=== PATIENT | female | born 1975 | race Caucasian/White ===

== ENCOUNTER → 2019-03-10 | Outpatient (CLI) | payer BC ==
--- NOTE | 2019-03-12 10:13 | MM ---
Reason for exam: screening (asymptomatic). Last mammogram was performed 5 years and 8 months ago. History: Patient is nulliparous. Family history of breast cancer in maternal grandmother. Physical Findings: A clinical breast exam by your physician is recommended on an annual basis and results should be correlated with mammographic findings. MG 3D Screening Mammo W/Cad Bilateral CC and MLO view(s) were taken. Prior study comparison: July 25, 2013, bilateral digital screening mammo w/CAD. The breast tissue is heterogeneously dense. This may lower the sensitivity of mammography. Finding: There are calcifications in the upper outer quadrant of the right breast. New finding since July 25, 2013. ASSESSMENT: Incomplete: need additional imaging evaluation, BI-RAD 0 RECOMMENDATION: Special view mammogram of the right breast. [facility] will attempt to contact patient to return for supplemental views.
== END ==
LOC: RADMAMWWP 15:41
PROVIDERS: ATTEND Obstetrics & Gynecology Obstetrics
DX: Z80.3 Family history of malignant neoplasm of breast (principal)
CPT/HCPCS: 77063; 77067

== ENCOUNTER → 2019-03-18 | Outpatient (CLI) | payer BC ==
--- NOTE | 2019-03-19 08:25 | MM ---
Reason for exam: additional evaluation requested from abnormal screening. Last mammogram was performed less than 1 month ago. History: Patient is nulliparous. Family history of breast cancer in maternal grandmother. Physical Findings: Nurse did not find any significant physical abnormalities on exam. MG 3D Work Up W/Cad RT CC with magnification, ML with magnification, and ML view(s) were taken of the right breast. Prior study comparison: March 10, 2019, bilateral MG 3d screening mammo w/cad. July 25, 2013, bilateral digital screening mammo w/CAD. The breast tissue is heterogeneously dense. This may lower the sensitivity of mammography. There are four groups of right upper outer quadrant calcifications at middle and posterior depth. Biopsy is recommended for the mass anteriorly and most posterior sites (arrow on imgages) magnification ML view. These results were verbally communicated with the patient and result sheet given to the patient on 03/18/19. ASSESSMENT: Suspicious, BI-RAD 4 RECOMMENDATION: Stereotactic core biopsy of the right breast. (2 sites) Called Dr. Yang with mammographic findings and has scheduled an appointment for the patient for 03/26/19 at 2:[address] Eagle. PRELIMINARY REPORT CALLED AND FAXED TO DR. EAGLE ON 03/18/19.
== END | disposition home or self-care (01) ==
LOC: RADMAMWWP 13:42
PROVIDERS: ATTEND Obstetrics & Gynecology Obstetrics
DX: R92.8 Other abnormal and inconclusive findings on diagnostic imaging of breast (principal)
CPT/HCPCS: 77061; 77065

== ENCOUNTER → 2019-04-03 | Day surgery (SDC) | payer BC ==
[2019-04-03 10:23] VITALS: RESP 16; BMI 34.1
[2019-04-03 12:09] VITALS: BP 157/84; PULSE 72; TEMP 97.9
--- NOTE | 2019-04-03 16:58 | MM ---
EXAMINATION TYPE: MG stereo VAD BX RT DATE OF EXAM: 04/03/2019 COMPARISON: NONE CLINICAL HISTORY: Multiple abnormal groups of calcifications TECHNIQUE: Stereotactic guided core biopsy of right breast. FINDINGS: The procedure of stereotactic guided core biopsy was explained to the patient. Benefits, alternatives, and risks were discussed. An informed consent was then obtained. Timeout was performed. 2 locations were chosen for biopsy. The shortness pathway for biopsy was chosen. Shortness pathway was lateral approach. Dr. Virgen performed the procedure. A vacuum assisted biopsy gun was used to obtain 6 core samples at each site. Sample: Mammographic samples of the biopsy sites were obtained. Multiple calcifications are present within each sample. Post procedure mammogram is obtained. 2 clips are within the right breast. The patient tolerated the procedure fairly well without any immediate complication. There was complaining of neck discomfort during and following the exam. The patient was kept in the radiology department for short stay after the procedure and then discharged home in stable condition. Discharge instructions were discussed with the patient. Patient will follow-up with her physician. IMPRESSION: 1. 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 Recommendations: 1. Recommendations are pending pathology results. 2. Depending on pathology results, additional workup and/or biopsy of additional calcification locations can be considered. Pathology Results: Malignant A. 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 Background fibrocystic changes. See Surgical Pathology Cancer Case Summary and Comment. B. 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 Background fibrocystic changes. See Surgical Pathology Cancer Case Summary and Comment. Recommendation Surgical consult of the right breast. NITHYA
== END | disposition home or self-care (01) ==
LOC: RADMAMWWP 10:03
PROVIDERS: ATTEND Surgery
DX: D05.11 Intraductal carcinoma in situ of right breast (principal)
CPT/HCPCS: 88305; 88342; 88341; 19081; 19082; A4648; J2001

== ENCOUNTER → 2019-09-10 | Outpatient (CLI) | payer BC ==
--- NOTE | 2019-09-11 04:19 | MR ---
EXAMINATION TYPE: MR pelvis wo/w con DATE OF EXAM: 09/10/2019 COMPARISON: None HISTORY: Rt Ovarian Mass / New Onset Breast Cancer CONTRAST: Standard multiplanar, multisequence MRI departmental protocol utilizing 9 mL intravenous Gadavist milena olinium contrast. FINDINGS: There is a 6.8 x 5.2 cm thin-walled sharply marginated rounded mass in the pelvis in the ri ght adnexal region that is probably a mass arising from the right ovary. This appears separate from t he uterus. There is a very tiny amount of fluid in the pelvis. This is between the mass and the uteru s. The pelvic mass has mixed signal characteristics and no significant enhancement with the contrast. The mass appears to be of mostly fat signal on the T1 and T2 images. The uterus is anteverted and measures 9.3 cm in length. There are large cervical cysts in the lower u terine segment that measure up to 1.6 cm. Endometrium is not thickened. Urinary bladder distends smoo thly. The sacral spine appears intact. IMPRESSION: There is a large circumscribed pelvic mass on the right side that is probably a tumor arising from ri ght ovary. This has significant fat signal characteristics and could be a dermoid tumor or teratoma. Numerous cervical cysts. Minimal free fluid in the pelvis..
== END | disposition home or self-care (01) ==
LOC: RADMRIMAIN 18:20
PROVIDERS: ATTEND Obstetrics & Gynecology Obstetrics
DX: R19.00 Intra-abdominal and pelvic swelling, mass and lump, unspecified site (principal); Q18.0 Sinus, fistula and cyst of branchial cleft; D05.10 Intraductal carcinoma in situ of unspecified breast
CPT/HCPCS: 72197; A9585

== ENCOUNTER → 2021-04-07 | Outpatient (CLI) | payer BC ==
[2021-04-08 16:28] LABS: Protein, Total 6.4 g/dL (6.2-8.2)
== END | disposition home or self-care (01) ==
LOC: LABWHC1 13:57
PROVIDERS: ATTEND Family Medicine
DX: M89.8X9 Other specified disorders of bone, unspecified site (principal)
CPT/HCPCS: 36415; 84165

== ENCOUNTER → 2024-05-28 | Outpatient (CLI) | payer BC ==
--- NOTE | 2024-05-28 18:20 | US ---
EXAMINATION TYPE: US chest DATE OF EXAM: 05/28/2024 COMPARISON: NONE CLINICAL INDICATION: Female, 49 years old with history of R22.2 MASS CHEST WALL; Patient feels mass x a couple years. Hx right mastectomy in 2019. TECHNIQUE: Scanned midline lower chest wall/upper ML epigastric area at patient's palpable area of c oncern. FINDINGS/IMPRESSION: Questionable mass-like area seen over xiphoid process region within lower chest /upper epigastric area. This is predominantly hypoechoic with shadowing demonstrated. No internal col or flow identified. Measures grossly 2.3 x 2.6 x 2.0 cm. May represent prominent xiphoid process with underlying mass not excluded. Further evaluation with CT chest with IV contrast is recommended.
== END | disposition home or self-care (01) ==
LOC: RADUSWWP 14:57
PROVIDERS: ATTEND Family Medicine
DX: R22.2 Localized swelling, mass and lump, trunk (principal); Z90.11 Acquired absence of right breast and nipple

== ENCOUNTER → 2024-06-02 | Outpatient (CLI) | payer BC ==
--- NOTE | 2024-06-02 15:01 | CT ---
EXAMINATION TYPE: CT chest w con DATE OF EXAM: 06/02/2024 COMPARISON: None HISTORY: Hx of rt side mastectomy, pt c/o lump on rt lower anterior chest, marked by radiopaque BB. CT DLP: 271.7 mGycm Automated exposure control for dose reduction was used. TECHNIQUE: CT scan of the chest is performed with IV Contrast, patient injected with 100 ml mL of Isovue 300. M IP Images are created on CT scanner and reviewed. 3D reconstructed images are created on an [employer] workstation and reviewed. FINDINGS: There is a 3 mm nodule in the right middle lobe. There is no airspace consolidation or abnormal interstitial density. There is no pleural effusion, pleural thickening or pneumothorax. The great vessels chest normal and is no mediastinal, hilar or axillary adenopathy. Limited scanning through the upper abdomen reveals no abnormality. Beneath the BB marker in the midline chest, there is a small protrusion of calcified cartilage. No o sseous destructive lesions or sclerotic lesions are seen. IMPRESSION: 1. Benign-appearing protrusion of cartilage with calcification beneath the BB marker. No suspicious o sseous lesions are seen. 2. 3 mm nodule in the right middle lobe most likely benign however given the history of breast cancer and no prior study for comparison, follow-up CT in 4-6 months is recommended as stability
== END | disposition home or self-care (01) ==
LOC: RADCTMAIN 14:09
PROVIDERS: ATTEND Family Medicine
DX: D16.9 Benign neoplasm of bone and articular cartilage, unspecified (principal); R91.1 Solitary pulmonary nodule
CPT/HCPCS: 71260; Q9967